=== PATIENT | female | born 1990 | race Two or more races ===

== ENCOUNTER 2024-08-04 21:09 | Emergency (ER) | payer MEDICAID ==
[~2024-08-04] VITALS: Ht 160 cm; Wt 61.4 kg
[2024-08-04 21:25] VITALS: O2SAT 98
[2024-08-04 22:22] LABS: BASOPHILS % 0.6 % (0.0-2.0); CHLORIDE 107 mEq/L (98-107); EOSINOPHILS % 3.9 % (0.0-5.0); HEMOGLOBIN. 11.4 g/dL (12.0-16.0); LYMPHOCYTES % 22.8 % (20.0-50.0); MEAN CORPUSCULAR HEMOGLOBIN 31.7 pg (28.0-32.0); MEAN CORPUSCULAR HGB CONC 33.6 g/dL (31.0-37.0); MEAN CORPUSCULAR VOLUME 94.4 fL (81.0-99.0); MEAN PLATELET VOLUME 8.4 fl (7.4-10.4); MONOCYTES % 7.9 % (2.0-8.0); NEUTROPHILS % 64.8 % (40.0-76.0); PLATELET 320 x1000/uL (130-400); POTASSIUM 4.2 mEq/L (3.5-5.1); RED CELL DISTRIBUTION WIDTH 14.1 % (11.6-14.6); SODIUM 138 mEq/L (136-145); WHITE BLOOD COUNT 9.1 x1000/uL (4.5-11.0)
[2024-08-04 22:23] LABS: CALCIUM 9.9 mg/dL (8.7-10.4); CARBON DIOXIDE 26 mEq/L (21-32)
[2024-08-04 22:28] LABS: CREATININE 0.7 mg/dL (0.6-1.0); GLUCOSE 102 mg/dL (70-105); UREA NITROGEN BLOOD 19 mg/dL (9-23)
[2024-08-04 22:30] LABS: ALANINE AMINOTRANSFERASE < 7 IU/L (10-49); ALBUMIN 4.1 g/dL (3.2-4.8); ASPARTATE AMINOTRANSFERASE 17 IU/L (<34); BILIRUBIN DIRECT < 0.1 mg/dL (<=3.0); BILIRUBIN TOTAL 0.3 mg/dL (0.1-1.0); PROTEIN TOTAL 7.5 g/dL (6.0-8.3)
[2024-08-04 23:05] LABS: HCG SCREEN NEGATIVE
[2024-08-05] MEDS ORDERED: MAG-55 MT (00:28)
[2024-08-05] MEDS ORDERED: OMEP10CA5 MT (00:28)
[2024-08-05] MEDS: ONDANSETRON HCL 4MG TABLET PO ONE (01:05)
[2024-08-05] MEDS: KETOROLAC 15MG/ML VIAL IM ONE (01:05)
[2024-08-05 01:22] VITALS: BP 106/73; PULSE 108; RESP 18; TEMP 36.8; O2SAT 98
== END 2024-08-05 00:45 | disposition home or self-care (01) ==
LOC: ER 21:09
DX: R10.13 Epigastric pain (principal); Z79.899 Other long term (current) drug therapy
CPT/HCPCS: 36415; 76705; 80048; 80076; 84703; 85025; 86850; 86900; 96372; 99285